=== PATIENT | female | born 1935 ===

== ENCOUNTER 2017-12-01 06:49 | Inpatient (IN) | payer MEDICARE ==
[2017-12-01 08:03] LABS: BASO # 0.1 K/uL (0.0-0.2); BASO % 0.7 % (0.0-2.0); EOS # 0.2 K/uL (0.0-0.7); EOS % 2.7 % (0.0-4.0); HEMOGLOBIN 12.6 g/dL (11.0-16.0); LYMPH # 1.8 K/uL (1.0-4.3); LYMPH % 26.1 % (20.0-40.0); MEAN CELL VOLUME 94.1 fL (81.0-99.0); MEAN CORPUSCULAR HEMOGLOBIN 31.7 pg (27.0-31.0); MEAN CORPUSCULAR HGB CONC 33.7 g/dL (33.0-37.0); MEAN PLATELET VOLUME 7.3 fL (7.2-11.7); MONO # 0.6 K/uL (0.0-0.8); MONO % 8.8 % (0.0-10.0); NEUT # 4.3 K/uL (1.8-7.0); NEUT % 61.7 % (50.0-75.0); RBC 3.98 Mil/uL (3.80-5.20); RED CELL DISTRIBUTION WIDTH 14.4 % (11.5-14.5)
[2017-12-01 08:29] LABS: CALCIUM 8.6 mg/dl (8.6-10.4); GFR AFRICAN-AMERICAN > 60; GFR NON-AFRICAN AMERICAN > 60
[2017-12-01 08:30] LABS: ALBUMIN 4.1 g/dL (3.5-5.0); ALT/SGPT < 6 U/L (9-52); AST/SGOT 65 U/L (14-36); BLOOD UREA NITROGEN 15 mg/dL (7-17)
--- NOTE | 2017-12-01 09:07 | C.PDOC ---
History Of Present Illness 81 y/o female sent to ED for worsened cellulitis. Patient states she is here for non healing left leg wound on left leg. Patient was being treated outpatient and recently traveled from the [facility] and then the wound became worsened. Patient currently denies pain, fever, vomiting, or diarrhea. Patient has steady gait. Time Seen by Provider: 12/01/17 07:19 Chief Complaint (Nursing): Lower Extremity Problem/Injury History Per: Patient, Family (Daughter) History/Exam Limitations: language barrier Onset/Duration Of Symptoms: Hrs Current Symptoms Are (Timing): Still Present Recent travel outside of the [place]: Yes Past Medical History Reviewed: Historical Data, Nursing Documentation, Vital Signs Vital Signs: Last Vital Signs Temp 98.4 F 12/01/17 16:00 Pulse 93 H 12/01/17 16:00 Resp 20 12/01/17 16:00 BP 117/68 12/01/17 16:00 Pulse Ox 97 12/01/17 16:00 - Medical History PMH: No Chronic Diseases Surgical History: No Surg Hx Family History: States: No Known Family Hx - Social History Hx Alcohol Use: No Hx Substance Use: No - Immunization History Hx Tetanus Toxoid Vaccination: No Hx Influenza Vaccination: No Hx Pneumococcal Vaccination: No Review Of Systems Except As Marked, All Systems Reviewed And Found Negative. Constitutional: Negative for: Fever, Chills Gastrointestinal: Negative for: Nausea, Vomiting, Abdominal Pain, Diarrhea Skin: Positive for: Other (Left leg wound ). Negative for: Rash Neurological: Negative for: Weakness, Numbness Physical Exam - Physical Exam Appears: Non-toxic, No Acute Distress Skin: Warm, Dry, No Rash, Other (2.5cm wound left distal calf) Eye(s): bilateral: Normal Inspection, PERRL, EOMI Oral Mucosa: Moist Neck: Supple Chest: Symmetrical, No Tenderness Cardiovascular: Rhythm Regular, No Murmur Respiratory: Normal Breath Sounds, No Decreased Breath Sounds, No Rales, No Rhonchi, No Wheezing Gastrointestinal/Abdominal: Soft, No Tenderness Extremity: Normal ROM (Full ROM to leg ), No Pedal Edema, Capillary Refill ( Normal ), Other (2.5cm wound left distal calf; erythematous; tender; Swelling) Extremity: Bilateral: Normal Color And Temperature, Normal ROM Pulses: Left Dorsalis Pedis: Normal, Right Dorsalis Pedis: Normal Neurological/Psych: Oriented x3 (Awake and alert), Normal Speech, Other (No focal deficits) Gait: Steady ED Course And Treatment - Laboratory Results Result Diagrams: 12/01/17 07:59 12/01/17 07:59 O2 Sat by Pulse Oximetry: 97 (RA) Pulse Ox Interpretation: Normal - Other Rad CXR X-Ray: Viewed By Me, Read By Radiologist Interpretation: PROCEDURE: CHEST RADIOGRAPH, 1 VIEW. HISTORY: Abdominal pain. COMPARISON: None available. FINDINGS: LUNGS: The lungs are well inflated. There is mild pulmonary venous congestion. No focal consolidation. PLEURA: No pneumothorax or pleural fluid seen. CARDIOVASCULAR: There is mild cardiomegaly with prominent central vasculature. OSSEOUS STRUCTURES: No significant abnormalities. VISUALIZED UPPER ABDOMEN: Normal. OTHER FINDINGS: None. IMPRESSION: No active pulmonary disease. Medical Decision Making Medical Decision Making: Ordered blood work, and blood and wound culture. The case was discussed with Dr. Walker (PMD) who states that the patient has failed outpatient therapy. The case was discussed with Dr. Efe Mooney ( infectious disease) who states to order a CRP and an ESR. Dr. Mooney also states to start the patient on Vanco and Rocephin. Disposition - Disposition Disposition: HOSPITALIZED Disposition Time: 09:00 Condition: FAIR - Clinical Impression Clinical Impression: Osteomyelitis - PA / PAINTER SET / Resident Statement MD/DO has reviewed & agrees with the documentation as recorded. - Scribe Statement The provider has reviewed the documentation as recorded by the Katyaibantoni Fuentes All medical record entries made by the Scribe were at my direction and personally dictated by me. I have reviewed the chart and agree that the record accurately reflects my personal performance of the history, physical exam, medical decision making, and the department course for this patient. I have also personally directed, reviewed, and agree with the discharge instructions and disposition.
--- NOTE | 2017-12-01 10:03 | RAD ---
PROCEDURE: CHEST RADIOGRAPH, 1 VIEW HISTORY: Abdominal pain COMPARISON: None available. FINDINGS: LUNGS: The lungs are well inflated. There is mild pulmonary venous congestion. No focal consolidation. PLEURA: No pneumothorax or pleural fluid seen. CARDIOVASCULAR: There is mild cardiomegaly with prominent central vasculature. OSSEOUS STRUCTURES: No significant abnormalities. VISUALIZED UPPER ABDOMEN: Normal. OTHER FINDINGS: None. IMPRESSION: No active pulmonary disease.
[2017-12-01] MEDS ORDERED: cefTRIAXone IV 1 gm in Dextros 50 ML IV ONE (10:25)
[2017-12-01] MEDS ORDERED: Vancomycin 1 GM 1 GM/250 ML BAG IV SCH (10:30)
[2017-12-01] MEDS ORDERED: Vancomycin 1 gm/NS 200 ml 1 GM/200 ML BAG IVPB ONE (12:00)
--- NOTE | 2017-12-01 12:36 | CP.PCM.CON ---
Past Patient History - Past Social History Smoking Status: Never Smoked - PSYCHIATRIC Hx Substance Use: No - SURGICAL HISTORY Hx Surgeries: No - ANESTHESIA Hx Anesthesia: No Meds Allergies/Adverse Reactions: Allergies Allergy/AdvReac Type Severity Reaction Status Date / Time No Known Allergies Allergy Unverified 12/01/17 06:54 - Medications Medications: Current Medications Vancomycin/Sodium Chloride (Vancomycin 1 Gm/Ns 200 Ml) 1 gm in 200 mls @ 133.333 mls/hr IVPB ONCE ONE PRN Reason: Protocol Stop: 12/01/17 13:29 Last Admin: 12/01/17 12:18 Dose: 133.333 mls/hr Results - Vital Signs Recent Vital Signs: Last Vital Signs Temp 98.1 F 12/01/17 11:20 Pulse 86 12/01/17 11:20 Resp 20 12/01/17 11:20 BP 173/78 H 12/01/17 11:20 Pulse Ox 95 12/01/17 11:20 - Labs Result Diagrams: 12/01/17 07:59 12/01/17 07:59 Labs: Laboratory Results - last 24 hr 12/01/17 12/01/17 07:59 07:59 WBC 7.0 RBC 3.98 Hgb 12.6 Hct 37.4 MCV 94.1 MCH 31.7 H MCHC 33.7 RDW 14.4 Plt Count 254 MPV 7.3 Neut % (Auto) 61.7 Lymph % (Auto) 26.1 [place] % (Auto) 8.8 Eos % (Auto) 2.7 Baso % (Auto) 0.7 Neut # (Auto) 4.3 Lymph # (Auto) 1.8 [place] # (Auto) 0.6 Eos # (Auto) 0.2 Baso # (Auto) 0.1 Sodium 145 Potassium 4.2 Chloride 108 H Carbon Dioxide 26 Anion Gap 15 BUN 15 Creatinine 0.5 L Est GFR ( Amer) > 60 Est GFR (Non-Af Amer) > 60 Random Glucose 98 Calcium 8.6 Total Bilirubin 1.2 AST 65 H ALT < 6 L Alkaline Phosphatase 134 H Total Protein 8.0 Albumin 4.1 Globulin 3.9 Albumin/Globulin Ratio 1.0
--- NOTE | 2017-12-01 13:18 | CP.PCM.HP ---
History of Present Illness - History of Present Illness History of Present Illness: 81 y.o. female with no significant PMH, NOT ON MAINTENANCE MEDICATION WAS ADMITTED DUE TO ONE MONTH WOUND ON LEFT LEG PATIENT WAS IN THE [facility] FOR MORE THAN A YEAR, SHE REPORTS THAT ABOUT A MONTH AGO, SHE WAS GARDENING AND HAS THIS ITCHY RASH ON HER LEFT LEG- , WOUND WORSENED AND SHE FINALLY SAW A DOCTOR AND WAS GIVEN ANTIBIOTIC BUT PATIENT ADMITS DID NOT TAKE THE ANTIBIOTIC. SSHE CAME TO THE CLINIC AN DNOTED TO HAVE SWELLING, REDNESS BLACKISH WOUND ON LEFT LEG- PATIENT WAS THEN ADMITTED FOR FURTHER MANAGEMENT AND EVALUATION PMH NONE SURGERY NONE MEDICATIONS NONE SOCIAL WAS IN THE [facility] FOR MORE THAN A YEAR, LIVES WITH FAMILY NON SMOKER NON ETOH Present on Admission - Present on Admission Any Indicators Present on Admission: Yes History of DVT/PE: No History of Uncontrolled Diabetes: No Urinary Catheter: No Decubitus Ulcer Present: Yes (LEFT LEG ) Review of Systems - Constitutional Constitutional: absent: Anorexia, Chills, Fatigue, Fever, Lethargy, Weakness - EENT Eyes: absent: Blurred Vision, Loss of Vision Ears: Decreased Hearing. absent: Dizziness Nose/Mouth/Throat: absent: Epistaxis, Nasal Congestion, Nasal Discharge, Sinus Pain, Dysphagia - Breasts Breasts: absent: Mass, Pain - Cardiovascular Cardiovascular: Palpitations. absent: Chest Pain, Dyspnea, Orthopnea, Pedal Edema, Syncope - Respiratory Respiratory: Chest Congestion. absent: Cough, Dyspnea - Gastrointestinal Gastrointestinal: absent: Abdominal Pain, Bloating, Temesmus, Vomiting - Genitourinary Genitourinary: Difficulty Urinating, Dysuria, Hematuria - Menstruation Menstruation: Post Menopausal - Musculoskeletal Musculoskeletal: absent: Abnormal Gait, Atrophy, Deformity - Integumentary Integumentary: Lesions, Skin Ulcer (BACK LEFT LEG-OPEN WOUND COVERED WITH BLACK ESCHAR WITH SURROUNDING REDNESS AND SWELLING ) - Neurological Neurological: absent: Abnormal Gait, Abnormal Movements, Abnormal Speech, Behavioral Changes, Convulsions, Disequilibrium, Dizziness, Syncope - Psychiatric Psychiatric: absent: Anxiety, Confusion, Hallucinations, Memory Loss - Endocrine Endocrine: absent: Polydipsia, Polyphagia, Polyuria - Hematologic/Lymphatic Hematologic: absent: Easy Bleeding, Easy Bruising Past Patient History - Past Medical History & Family History Past Medical History?: No - Past Social History Smoking Status: Never Smoked - PSYCHIATRIC Hx Substance Use: No - SURGICAL HISTORY Hx Surgeries: No - ANESTHESIA Hx Anesthesia: No Meds Allergies/Adverse Reactions: Allergies Allergy/AdvReac Type Severity Reaction Status Date / Time No Known Allergies Allergy Unverified 12/01/17 06:54 Physical Exam - Constitutional Appears: No Acute Distress - Head Exam Head Exam: ATRAUMATIC, NORMOCEPHALIC - Eye Exam Eye Exam: Normal appearance. absent: Nystagmus - ENT Exam ENT Exam: Mucous Membranes Moist - Neck Exam Neck exam: Positive for: Full Rom. Negative for: Tenderness - Respiratory Exam Respiratory Exam: Clear to Auscultation Bilateral, NORMAL BREATHING PATTERN - Cardiovascular Exam Cardiovascular Exam: REGULAR RHYTHM - GI/Abdominal Exam GI & Abdominal Exam: Normal Bowel Sounds, Soft. absent: Tenderness - Extremities Exam Extremities exam: Positive for: full ROM (PATIENT IS AMBULATORY WITH OPEN WOUND ON BACK OF LEFT LEG COVERED WITH BLACK MATERIAL, WITH SURROUNDING REDNESS AND SWELLING , PULSES NOT FELT , FEET HAS WHITISH DEPIGMENTATION FROM PREVIOUS SKIN LESION ) - Back Exam Back exam: absent: rash noted, tenderness - Neurological Exam Neurological exam: Alert, Normal Gait, Oriented x3 - Psychiatric Exam Psychiatric exam: Normal Affect, Normal Mood - Skin Skin Exam: Intact (OR=THER THAN THE LEG LESION ), Normal Color Results - Vital Signs Recent Vital Signs: Last Vital Signs Temp 98.1 F 12/01/17 11:20 Pulse 86 12/01/17 11:20 Resp 20 12/01/17 11:20 BP 173/78 H 12/01/17 11:20 Pulse Ox 95 12/01/17 11:20 - Labs Result Diagrams: 12/01/17 07:59 12/01/17 07:59 Labs: Laboratory Results - last 24 hr 12/01/17 12/01/17 07:59 07:59 WBC 7.0 RBC 3.98 Hgb 12.6 Hct 37.4 MCV 94.1 MCH 31.7 H MCHC 33.7 RDW 14.4 Plt Count 254 MPV 7.3 Neut % (Auto) 61.7 Lymph % (Auto) 26.1 [place] % (Auto) 8.8 Eos % (Auto) 2.7 Baso % (Auto) 0.7 Neut # (Auto) 4.3 Lymph # (Auto) 1.8 [place] # (Auto) 0.6 Eos # (Auto) 0.2 Baso # (Auto) 0.1 Sodium 145 Potassium 4.2 Chloride 108 H Carbon Dioxide 26 Anion Gap 15 BUN 15 Creatinine 0.5 L Est GFR ( Amer) > 60 Est GFR (Non-Af Amer) > 60 Random Glucose 98 Calcium 8.6 Total Bilirubin 1.2 AST 65 H ALT < 6 L Alkaline Phosphatase 134 H Total Protein 8.0 Albumin 4.1 Globulin 3.9 Albumin/Globulin Ratio 1.0 Assessment & Plan - Assessment and Plan (Free Text) Assessment: 81 Y. O. FEMALE WITH NO SIGNIFICANT PMH- ADMITTED FOR POSSIBLE OSTEOMYELITIS WITH SURROUNDING CELLULITIS CULTURE, BONE SCAN ID CONSULT, SURGICAL CONSULT FOR POSSIBLE DEBRIDEMENT ANTIBIOTIC, FALL PRECAUTION GI AND DVT PROPHY;AXIS DISCUSSION WITH PATIENT AND DAUGHTER - Date & Time Date: 12/01/17
[2017-12-01 16:58] LABS: HDL CHOLESTEROL 29 mg/dL (30-70)
[2017-12-01 17:08] LABS: LDL CHOLESTEROL 69 mg/dL (0-129)
[2017-12-01] MEDS: Sodium Chloride 0.9% 1,000 ML IV SCH (17:45)
--- NOTE | 2017-12-01 17:54 | CP.PCM.CON ---
History of Present Illness - History of Present Illness History of Present Illness: Vascular Surgery Consult for Dr. Gamboa This is an 81F with no PMH who was gardening in the [facility] 1 month ago when she was bit by something. Her leg was itching and over the month the lesion turned black and necrotic. She denies any fevers or chills at home. She denies any CP or SOB. PMH: Denies PSH: None ALL: Fish Social: No vices Review of Systems - Constitutional Constitutional: absent: Anorexia, Chills - EENT Eyes: absent: Blind Spots, Change in Vision Ears: absent: Decreased Hearing, Ear Pain - Cardiovascular Cardiovascular: absent: Chest Pain, Dyspnea - Respiratory Respiratory: absent: Cough, Dyspnea - Gastrointestinal Gastrointestinal: absent: Abdominal Pain, Bloating, Diarrhea, Nausea - Genitourinary Genitourinary: absent: Change in Urinary Stream, Dysuria Past Patient History - Past Medical History & Family History Past Medical History?: No - Past Social History Smoking Status: Never Smoked - PSYCHIATRIC Hx Substance Use: No - SURGICAL HISTORY Hx Surgeries: No - ANESTHESIA Hx Anesthesia: No Meds Allergies/Adverse Reactions: Allergies Allergy/AdvReac Type Severity Reaction Status Date / Time No Known Allergies Allergy Unverified 12/01/17 06:54 - Medications Medications: Current Medications Enoxaparin Sodium (Lovenox) 30 mg SC DAILY [facility] Sodium Chloride (Sodium Chloride 0.9%) 1,000 mls @ 100 mls/hr IV .Q10H [facility] Pantoprazole Sodium (Protonix Ec Tab) 40 mg PO DAILY [facility] Physical Exam - Constitutional Appears: Non-toxic, No Acute Distress - Head Exam Head Exam: NORMAL INSPECTION, NORMOCEPHALIC - Eye Exam Eye Exam: EOMI, Normal appearance - ENT Exam ENT Exam: Mucous Membranes Moist - Respiratory Exam Respiratory Exam: NORMAL BREATHING PATTERN - Cardiovascular Exam Cardiovascular Exam: +S1, +S2 - GI/Abdominal Exam GI & Abdominal Exam: Normal Bowel Sounds, Soft. absent: Distended, Firm, Guarding, Hernia - Neurological Exam Neurological exam: Alert, Oriented x3 - Psychiatric Exam Psychiatric exam: Normal Affect, Normal Mood - Skin Skin Exam: Dry, Intact Results - Vital Signs Recent Vital Signs: Last Vital Signs Temp 98.4 F 12/01/17 16:00 Pulse 93 H 12/01/17 16:00 Resp 20 12/01/17 16:00 BP 117/68 12/01/17 16:00 Pulse Ox 97 12/01/17 16:00 - Labs Result Diagrams: 12/01/17 07:59 12/01/17 07:59 Labs: Laboratory Results - last 24 hr 12/01/17 12/01/17 12/01/17 07:59 07:59 13:46 WBC 7.0 RBC 3.98 Hgb 12.6 Hct 37.4 MCV 94.1 MCH 31.7 H MCHC 33.7 RDW 14.4 Plt Count 254 MPV 7.3 Neut % (Auto) 61.7 Lymph % (Auto) 26.1 [place] % (Auto) 8.8 Eos % (Auto) 2.7 Baso % (Auto) 0.7 Neut # (Auto) 4.3 Lymph # (Auto) 1.8 [place] # (Auto) 0.6 Eos # (Auto) 0.2 Baso # (Auto) 0.1 ESR 20 Sodium 145 Potassium 4.2 Chloride 108 H Carbon Dioxide 26 Anion Gap 15 BUN 15 Creatinine 0.5 L Est GFR ( Amer) > 60 Est GFR (Non-Af Amer) > 60 Random Glucose 98 Hemoglobin A1c Calcium 8.6 Total Bilirubin 1.2 AST 65 H ALT < 6 L Alkaline Phosphatase 134 H C-Reactive Protein Total Protein 8.0 Albumin 4.1 Globulin 3.9 Albumin/Globulin Ratio 1.0 Triglycerides Cholesterol LDL Cholesterol Direct HDL Cholesterol 12/01/17 12/01/17 13:46 13:50 WBC RBC Hgb Hct MCV MCH MCHC RDW Plt Count MPV Neut % (Auto) Lymph % (Auto) [place] % (Auto) Eos % (Auto) Baso % (Auto) Neut # (Auto) Lymph # (Auto) [place] # (Auto) Eos # (Auto) Baso # (Auto) ESR Sodium Potassium Chloride Carbon Dioxide Anion Gap BUN Creatinine Est GFR ( Amer) Est GFR (Non-Af Amer) Random Glucose Hemoglobin A1c 5.6 Calcium Total Bilirubin AST ALT Alkaline Phosphatase C-Reactive Protein < 5.00 Total Protein Albumin Globulin Albumin/Globulin Ratio Triglycerides 85 Cholesterol 130 LDL Cholesterol Direct 69 HDL Cholesterol 29 L Assessment & Plan - Assessment and Plan (Free Text) Assessment: 81F with LLE necrotic lesion NPO after midnight IVF OR tomorrow AM AM Labs D/W Dr. Cooper Finn PGY2
--- NOTE | 2017-12-01 19:48 | CP.PCM.CON ---
History of Present Illness - History of Present Illness History of Present Illness: INFECTIOUS DISEASE CONSULT History of Present Illness: 81-year-old pleasant female with no significant past medical history was admitted to [facility] for cellulitis and necrotic,NONHEALING wound left lower leg for the past 4 weeks. As stated by the patient she was in [facility] for about a year and just returned to [facility] last week. She developed an itchy rash while she was working in the garden and she scratched and developed an ulcer. She also developed surrounding erythema around the ulcer site and went to see a Docter in [facility] who prescribed her some antibiotic. Patient states she did not take the antibiotic and now when she returned to [facility] she went to the clinic and was advised to go to the emergency room for further evaluation. Patient also states she has multiple allergies to seafood especially shrimp, fish, crabs. INFECTIOUS DISEASE CONSULT REQUESTED BY DR GAUTHIER FOR NONHEALING ULCER LEFT LOWER LEG/RULE OUT OSTEOMYELITIS. PMH; DENIES HISTORY OF DIABETES MELLITUS, HYPERTENSION, ATHEROSCLEROTIC HEART DISEASE, ASTHMA, HAYFEVER SURGERY NONE MEDICATIONS ;NONE SOCIAL WAS IN THE [facility] FOR MORE THAN A YEAR, LIVES WITH FAMILY NON SMOKER NON ETOH ALLERGY; SEAFOOD, FISH, SHRIMP, CRAB. IMMUNIZATIONS; Hx Tetanus Toxoid Vaccination: No Hx Influenza Vaccination: No Hx Pneumococcal Vaccination: No Review of Systems - Constitutional Constitutional: absent: Chills, Fever - EENT Eyes: absent: Change in Vision Ears: absent: Dizziness Nose/Mouth/Throat: absent: Mouth Lesions - Cardiovascular Cardiovascular: absent: Chest Pain, Dyspnea - Respiratory Respiratory: absent: Cough - Gastrointestinal Gastrointestinal: absent: Abdominal Pain, Diarrhea, Nausea, Vomiting - Genitourinary Genitourinary: absent: Dysuria, Hematuria - Integumentary Integumentary: Non-Healing Lesions (left lower extremity) - Hematologic/Lymphatic Hematologic: As Per HPI. absent: Easy Bleeding, Easy Bruising, Lymphadenopathy Past Patient History - Past Medical History & Family History Past Medical History?: No - Past Social History Smoking Status: Never Smoked - PSYCHIATRIC Hx Substance Use: No - SURGICAL HISTORY Hx Surgeries: No - ANESTHESIA Hx Anesthesia: No Meds Allergies/Adverse Reactions: Allergies Allergy/AdvReac Type Severity Reaction Status Date / Time No Known Allergies Allergy Unverified 12/01/17 06:54 - Medications Medications: Current Medications Enoxaparin Sodium (Lovenox) 30 mg SC DAILY [facility] Sodium Chloride (Sodium Chloride 0.9%) 1,000 mls @ 100 mls/hr IV .Q10H [facility] Pantoprazole Sodium (Protonix Ec Tab) 40 mg PO DAILY [facility] Physical Exam - Constitutional Appears: No Acute Distress - Head Exam Head Exam: NORMAL INSPECTION - Eye Exam Eye Exam: EOMI, PERRL - ENT Exam ENT Exam: Normal Oropharynx - Neck Exam Neck exam: Positive for: Normal Inspection - Respiratory Exam Respiratory Exam: Clear to Auscultation Bilateral - Cardiovascular Exam Cardiovascular Exam: REGULAR RHYTHM, +S1, +S2 - GI/Abdominal Exam GI & Abdominal Exam: Normal Bowel Sounds, Soft. absent: Organomegaly - Extremities Exam Extremities exam: Positive for: pedal edema, tenderness (left lower extremity with a necrotic ulcer with surrounding erythema.), pedal pulses present. Negative for: calf tenderness - Psychiatric Exam Psychiatric exam: Normal Mood - Skin Skin Exam: Normal Color, Warm Results - Vital Signs Recent Vital Signs: Last Vital Signs Temp 98.4 F 12/01/17 16:00 Pulse 93 H 12/01/17 16:00 Resp 20 12/01/17 16:00 BP 117/68 12/01/17 16:00 Pulse Ox 97 12/01/17 19:00 - Labs Result Diagrams: 12/01/17 07:59 12/01/17 07:59 Labs: Laboratory Results - last 24 hr 12/01/17 12/01/17 12/01/17 07:59 07:59 13:46 WBC 7.0 RBC 3.98 Hgb 12.6 Hct 37.4 MCV 94.1 MCH 31.7 H MCHC 33.7 RDW 14.4 Plt Count 254 MPV 7.3 Neut % (Auto) 61.7 Lymph % (Auto) 26.1 [place] % (Auto) 8.8 Eos % (Auto) 2.7 Baso % (Auto) 0.7 Neut # (Auto) 4.3 Lymph # (Auto) 1.8 [place] # (Auto) 0.6 Eos # (Auto) 0.2 Baso # (Auto) 0.1 ESR 20 Sodium 145 Potassium 4.2 Chloride 108 H Carbon Dioxide 26 Anion Gap 15 BUN 15 Creatinine 0.5 L Est GFR ( Amer) > 60 Est GFR (Non-Af Amer) > 60 Random Glucose 98 Hemoglobin A1c Calcium 8.6 Total Bilirubin 1.2 AST 65 H ALT < 6 L Alkaline Phosphatase 134 H C-Reactive Protein Total Protein 8.0 Albumin 4.1 Globulin 3.9 Albumin/Globulin Ratio 1.0 Triglycerides Cholesterol LDL Cholesterol Direct HDL Cholesterol 12/01/17 12/01/17 13:46 13:50 WBC RBC Hgb Hct MCV MCH MCHC RDW Plt Count MPV Neut % (Auto) Lymph % (Auto) [place] % (Auto) Eos % (Auto) Baso % (Auto) Neut # (Auto) Lymph # (Auto) [place] # (Auto) Eos # (Auto) Baso # (Auto) ESR Sodium Potassium Chloride Carbon Dioxide Anion Gap BUN Creatinine Est GFR ( Amer) Est GFR (Non-Af Amer) Random Glucose Hemoglobin A1c 5.6 Calcium Total Bilirubin AST ALT Alkaline Phosphatase C-Reactive Protein < 5.00 Total Protein Albumin Globulin Albumin/Globulin Ratio Triglycerides 85 Cholesterol 130 LDL Cholesterol Direct 69 HDL Cholesterol 29 L - Imaging and Cardiology Chest x-ray Status: Report reviewed by me (see report.) Assessment & Plan (1) Nonhealing ulcer of left lower leg Assessment and Plan: ETIOLOGY OF NECROTIC ULCER NOT CLEAR ? INSECT BITE VS INFECTIOUS ?MRSA / STREP, PSEUDOMONAS ,FUNGAL , NON TUBERCULOUS MYCOBACTERIUM (AFB ) PT FOR DEBRIDEMENT/AND BX IN AM - SURGERY ON BOARD SEND WOUND CULTURE IN OR FOR *GRAM STAIN AND CULTURE, * FUNGAL SMEAR AND CULTURE * AFB SMEAR AND CULTURE * HISTOLOGY/ START IV ROCEPHIN 1 G ONCE A DAY DAILY. 12/01/17 START iv VANCOMYCIN 1 G ONCE A DAY DAILY 12/01/17 MONITOR vANCO TROUGH LEVEL PRIOR TO THE THIRD DOSE AND KEEP BETWEEN 10 AND 20 F/U RENAL FUNCTIONS CLOSELY. LWC PER SURGERY. 3PHASE BONE SCAN R/O OSTEOMYLITIS LLE Status: Acute (2) Cellulitis of lower extremity Assessment and Plan: PATIENT STARTED ON iv ANTIBIOTICS. Status: Acute
[2017-12-02] MEDS: Sodium Chloride 0.9% 1,000 ML IV SCH ×2 (03:45→06:08)
--- NOTE | 2017-12-02 07:24 | CP.PCM.PN ---
Subjective - Date & Time of Evaluation Date of Evaluation: 12/02/17 Time of Evaluation: 10:00 - Subjective Subjective: Patient with necrotic wound,non healing -consulted surgery for debridement, Notes from surgery noted Patient seen she was NPO for OR today for debridement she wants to ggo home for an event on Wednesday in [place] Discusssion with social work therapist- regarding home IV Objective - Vital Signs/Intake and Output Vital Signs (last 24 hours): Temp Pulse Resp BP Pulse Ox 98.1 F 86 20 112/69 96 12/01/17 23:24 12/01/17 23:24 12/01/17 23:24 12/01/17 23:24 12/01/17 23:24 Intake and Output: 12/02/17 12/02/17 06:59 18:59 Intake Total 1500 Balance 1500 - Medications Medications: Current Medications Enoxaparin Sodium (Lovenox) 30 mg SC DAILY [facility] Sodium Chloride (Sodium Chloride 0.9%) 1,000 mls @ 100 mls/hr IV .Q10H [facility] Last Admin: 12/02/17 06:08 Dose: 100 mls/hr Ceftriaxone Sodium 1 gm/ (Sodium Chloride) 100 mls @ 100 mls/hr IVPB DAILY [facility]INNA PRN Reason: Protocol Vancomycin/Sodium Chloride (Vancomycin 1 Gm/Ns 200 Ml) 1 gm in 200 mls @ 133.333 mls/hr IVPB Q24H CORINNA PRN Reason: Protocol Pantoprazole Sodium (Protonix Ec Tab) 40 mg PO DAILY [facility] Pneumococcal Polyvalent Vaccine (Pneumovax 23 Vaccine) 0.5 ml IM .ONCE ONE Stop: 12/03/17 10:01 - Labs Labs: 12/01/17 07:59 12/01/17 07:59 - Constitutional Appears: Well, Non-toxic - Head Exam Head Exam: ATRAUMATIC, NORMOCEPHALIC - Eye Exam Eye Exam: Normal appearance. absent: Nystagmus - ENT Exam ENT Exam: Mucous Membranes Moist - Respiratory Exam Respiratory Exam: Clear to Ausculation Bilateral, NORMAL BREATHING PATTERN - Cardiovascular Exam Cardiovascular Exam: REGULAR RHYTHM - GI/Abdominal Exam GI & Abdominal Exam: Soft, Normal Bowel Sounds - Extremities Exam Extremities Exam: Full ROM (left leg swelling and redness had gone down ). absent: Tenderness - Back Exam Back Exam: Full ROM. absent: rash noted - Neurological Exam Neurological Exam: Alert, Awake, Normal Gait (but she does not get out of bed byself- fall precaution), Oriented x3 - Psychiatric Exam Psychiatric exam: Normal Affect, Normal Mood - Skin Skin Exam: Intact (other than the leg lesion), Normal Color Assessment and Plan - Assessment and Plan (Free Text) Assessment: Patient with no other PMH- admitted for one month wound with cellulitis of left leg . on antibiotic, bone scan negative for OM, ID on case , awaiting cultures patent is scheduled for debridement today stable, afebrile patient aware of condition and plan discussion with ID and staff patient wishes to go home tomorrow for a family event on Wednesday
[2017-12-02 08:41] LABS: HEMOGLOBIN 12.6 g/dL (11.0-16.0); MEAN CELL VOLUME 94.2 fL (81.0-99.0); MEAN CORPUSCULAR HEMOGLOBIN 31.3 pg (27.0-31.0); MEAN CORPUSCULAR HGB CONC 33.2 g/dL (33.0-37.0); MEAN PLATELET VOLUME 7.4 fL (7.2-11.7); RBC 4.05 Mil/uL (3.80-5.20); RED CELL DISTRIBUTION WIDTH 14.3 % (11.5-14.5); WHITE BLOOD COUNT 5.7 K/uL (4.8-10.8)
[2017-12-02 08:45] LABS: INR 1.2; PROTHROMBIN TIME 12.7 SECONDS (9.7-12.2)
[2017-12-02 09:11] LABS: ALBUMIN 3.5 g/dL (3.5-5.0); ALT/SGPT 21 U/L (9-52); AST/SGOT 25 U/L (14-36); BLOOD UREA NITROGEN 10 mg/dL (7-17); CALCIUM 8.8 mg/dl (8.6-10.4); GFR AFRICAN-AMERICAN > 60; GFR NON-AFRICAN AMERICAN > 60
[2017-12-02] MEDS: Pantoprazole 40 mg EC Tab PO SCH (10:11)
[2017-12-02] MEDS: Enoxaparin 30 mg Syringe SC SCH (10:12)
--- NOTE | 2017-12-02 12:00 | NM ---
PROCEDURE: Three-phase bone scan HISTORY: r/o osteomylitis Anatomic area of interest: Not provided COMPARISON: None available. TECHNIQUE: Following administration of 21.3 miCu of Tc MDP multiplanar whole body images were obtained. FINDINGS: Flow component: Increased flow to the left lower extremity from the visualized calf to the foot. Blood pool component: Increased accumulation of radionuclide primarily within soft tissues the visualized left lower extremity. Delayed images at 3:00: Presumed degenerative/posttraumatic changes both feet Other findings: None. IMPRESSION: Findings consistent with left lower extremity cellulitis without acute osseous abnormality
[2017-12-02] MEDS: Vancomycin 1 gm/NS 200 ml 1 GM/200 ML BAG IVPB SCH (12:51)
--- NOTE | 2017-12-02 14:23 | CP.PCM.PN ---
Subjective - Date & Time of Evaluation Date of Evaluation: 12/02/17 Time of Evaluation: 14:22 - Subjective Subjective: DISCUSSED BONE SCAN RESULTS WITH DRS. GAUTHIER AND ANGELITO. NO NEED FOR PICC LINE SINCE BONE SCAN NEG FOR OM. PER DR. EATON NO NEED FOR CORRECTION IV ABX. DR. EATON WILL DOCUMENT HER RECOMMENDATIONS FOR PO ABX TO BE STARTED UPON D/C. PER DR. GAUTHIER PT WISHES TO BE D/C TOMORROW. WILL ENDORSE TO [employer] PRODUCER ALISA TO F/U FOR D/ C PLANS/RX. DISCUSSED WITH PRIMARY RN GINGER. NO FURTHER ORDERS. Objective - Vital Signs/Intake and Output Vital Signs (last 24 hours): Temp Pulse Resp BP Pulse Ox 98.5 F 76 20 131/72 96 12/02/17 07:59 12/02/17 07:59 12/02/17 07:59 12/02/17 07:59 12/02/17 07:59 Intake and Output: 12/02/17 12/02/17 06:59 18:59 Intake Total 1500 Balance 1500 - Medications Medications: Current Medications Enoxaparin Sodium (Lovenox) 30 mg SC DAILY [facility] Last Admin: 12/02/17 10:12 Dose: Not Given Ceftriaxone Sodium 1 gm/ (Sodium Chloride) 100 mls @ 100 mls/hr IVPB DAILY [facility] PRN Reason: Protocol Last Admin: 12/02/17 10:11 Dose: 100 mls/hr Vancomycin/Sodium Chloride (Vancomycin 1 Gm/Ns 200 Ml) 1 gm in 200 mls @ 133.333 mls/hr IVPB Q24H [facility] PRN Reason: Protocol Last Admin: 12/02/17 12:51 Dose: 133.333 mls/hr Potassium Chloride 20 meq/ (Sodium Chloride) 1,010 mls @ 100 mls/hr IV .Q10H6M [facility] Pantoprazole Sodium (Protonix Ec Tab) 40 mg PO DAILY [facility] Last Admin: 12/02/17 10:11 Dose: 40 mg Pneumococcal Polyvalent Vaccine (Pneumovax 23 Vaccine) 0.5 ml IM .ONCE ONE Stop: 12/03/17 10:01 - Labs Labs: 12/02/17 08:29 12/02/17 08:29 PT 12.7 SECONDS (9.7-12.2) H 12/02/17 08:29 INR 1.2 12/02/17 08:29 APTT 38 SECONDS (21-34) H 12/02/17 08:29
[2017-12-02] MEDS ORDERED: Propofol 10 mg/ml Inj (20 ML) ONE (14:34)
[2017-12-02] MEDS ORDERED: Lidocaine Hydrochloride 15 ML INJ ONE (14:36)
[2017-12-02] MEDS ORDERED: Lactated Ringer's 1,000 ML IV ONE (15:03)
--- NOTE | 2017-12-02 15:06 | PCM.SURG1 ---
Surgeon's Initial Post Op Note - Surgeon's Notes Surgeon: paula Bilingual Social Worker: 0 Type of Anesthesia: IV Sedation, Local Anesthesia Administered By: catherine Pre-Operative Diagnosis: left calf ulcer Operative Findings: pus cultured. debrided skin and sq tissue Post-Operative Diagnosis: same Operation Performed: debridement of skin and sq tissue left calf Specimen/Specimens Removed: tissue/culture Estimated Blood Loss: EBL {In ML}: 10 Blood Products Given: N/A Drains Used: No Drains Post-Op Condition: Good Date of Surgery/Procedure: 12/02/17 Time of Surgery/Procedure: 15:06
[2017-12-02] MEDS ORDERED: Oxycodone/Acetaminophen 5/325 mg Tab PO PRN (15:07)
[2017-12-02 16:31] VITALS: RESP 20
--- NOTE | 2017-12-02 19:39 | CP.PCM.PN ---
Subjective - Date & Time of Evaluation Date of Evaluation: 12/02/17 Time of Evaluation: 19:39 - Subjective Subjective: S/P DEBRIDEMENT LT. CALF ULCER. Type of Anesthesia: IV Sedation, Local Anesthesia Administered By: catherine Pre-Operative Diagnosis: left calf ulcer Operative Findings: pus cultured. debrided skin and sq tissue PT SEEN POST -OPT. VSS. Objective - Vital Signs/Intake and Output Vital Signs (last 24 hours): Temp Pulse Resp BP Pulse Ox 97.3 F L 74 20 163/89 H 95 12/02/17 16:30 12/02/17 16:30 12/02/17 16:30 12/02/17 16:30 12/02/17 16:30 Intake and Output: 12/02/17 12/03/17 18:59 06:59 Intake Total 1105 Balance 1105 - Medications Medications: Current Medications Enoxaparin Sodium (Lovenox) 30 mg SC DAILY [facility] Last Admin: 12/02/17 10:12 Dose: Not Given Ceftriaxone Sodium 1 gm/ (Sodium Chloride) 100 mls @ 100 mls/hr IVPB DAILY [facility] PRN Reason: Protocol Last Admin: 12/02/17 10:11 Dose: 100 mls/hr Vancomycin/Sodium Chloride (Vancomycin 1 Gm/Ns 200 Ml) 1 gm in 200 mls @ 133.333 mls/hr IVPB Q24H [facility] PRN Reason: Protocol Last Admin: 12/02/17 12:51 Dose: 133.333 mls/hr Potassium Chloride 20 meq/ (Sodium Chloride) 1,010 mls @ 100 mls/hr IV .Q10H6M [facility] Last Admin: 12/02/17 11:00 Dose: 100 mls/hr Oxycodone/Acetaminophen (Percocet 5/325 Mg Tab) 1 tab PO Q4H PRN PRN Reason: Pain, moderate (4-7) Stop: 12/05/17 15:08 Pantoprazole Sodium (Protonix Ec Tab) 40 mg PO DAILY [facility] Last Admin: 12/02/17 10:11 Dose: 40 mg Pneumococcal Polyvalent Vaccine (Pneumovax 23 Vaccine) 0.5 ml IM .ONCE ONE Stop: 12/03/17 10:01 - Labs Labs: 12/02/17 08:29 12/02/17 08:29 PT 12.7 SECONDS (9.7-12.2) H 12/02/17 08:29 INR 1.2 12/02/17 08:29 APTT 38 SECONDS (21-34) H 12/02/17 08:29 - Constitutional Appears: No Acute Distress, Cachectic - Head Exam Head Exam: NORMAL INSPECTION - Eye Exam Eye Exam: EOMI, PERRL - ENT Exam ENT Exam: Normal Oropharynx - Neck Exam Neck Exam: Normal Inspection - Respiratory Exam Respiratory Exam: Clear to Ausculation Bilateral - Cardiovascular Exam Cardiovascular Exam: REGULAR RHYTHM, +S1, +S2 - GI/Abdominal Exam GI & Abdominal Exam: Soft, Normal Bowel Sounds - Extremities Exam Extremities Exam: absent: Calf Tenderness (LT CALF IN DRESSING.) - Neurological Exam Neurological Exam: Awake, CN II-XII Intact, Oriented x3 - Psychiatric Exam Psychiatric exam: Normal Mood - Skin Skin Exam: Normal Color, Warm Assessment and Plan (1) Nonhealing ulcer of left lower leg Assessment & Plan: S/P DEBRIDEMENT OF LEFT CALF ULCER . WOUND CULTURE PENDING. THREE-PHASE BONE SCAN LLE +VE CELLULITIS, NO OSTEOMYELITIS. CASE DISCUSSED WITH DR GAUTHIER . / FIELD SERVICE SPECIALIST. MS BURRIS AWAIT CULTURES TO ADJUST ANTIBIOTICS- PATIENT WILL BE SWITCHED TO BY MOUTH ANTIBIOTICS ONCE CULTURE RESULTS AVAILABLE. FAMILY ANXIOUS TO TAKE HER HOME FOR GRANDDAUGHTER'S GRADUATION. Status: Acute (2) Cellulitis of lower extremity Status: Acute
--- NOTE | 2017-12-03 01:49 | OP ---
PROCEDURE DATE: 12/02/2017 PREOPERATIVE DIAGNOSIS: Ulcer, left calf. POSTOPERATIVE DIAGNOSIS: Ulcer, left calf. PROCEDURE CARRIED OUT: Debridement of skin and subcutaneous tissue, left calf. SURGEON: Edward Gamboa Jr., MD ASSISTANTS: None. ANESTHESIOLOGIST: Mr. Cameron. TYPE OF ANESTHESIA: Local with sedation. INDICATIONS: An 81-year-old woman, had injury to the leg, developed a large scab. OPERATIVE FINDINGS: The wound with scab, which measured over 3 cm in every dimension, was removed ____ sheba pus, which was debrided, irrigated and cultured. The wound was packed open. The procedure was terminated. Blood loss of the procedure was 10 mL. Operation carried out is debridement of skin and subcutaneous, left calf. Edward Gamboa Jr., MD cc: Liv Vásquez MD
[2017-12-03 07:49] VITALS: BP 145/85
--- NOTE | 2017-12-03 07:55 | CP.PCM.PN ---
Subjective - Date & Time of Evaluation Date of Evaluation: 12/03/17 Time of Evaluation: 06:55 - Subjective Subjective: SURGERY NOTE FOR DR. WOLF 81F seen and examined at bedside. Patient states she feels well, denies pain at site of debridement. Objective - Vital Signs/Intake and Output Vital Signs (last 24 hours): Temp Pulse Resp BP Pulse Ox 98.1 F 78 20 145/85 96 12/03/17 07:48 12/03/17 07:48 12/03/17 07:48 12/03/17 07:48 12/03/17 07:48 Intake and Output: 12/03/17 12/03/17 06:59 18:59 Intake Total 1000 Balance 1000 - Medications Medications: Current Medications Enoxaparin Sodium (Lovenox) 30 mg SC DAILY [facility] Last Admin: 12/02/17 10:12 Dose: Not Given Ceftriaxone Sodium 1 gm/ (Sodium Chloride) 100 mls @ 100 mls/hr IVPB DAILY [facility] PRN Reason: Protocol Last Admin: 12/02/17 10:11 Dose: 100 mls/hr Vancomycin/Sodium Chloride (Vancomycin 1 Gm/Ns 200 Ml) 1 gm in 200 mls @ 133.333 mls/hr IVPB Q24H [facility] PRN Reason: Protocol Last Admin: 12/02/17 12:51 Dose: 133.333 mls/hr Potassium Chloride 20 meq/ (Sodium Chloride) 1,010 mls @ 100 mls/hr IV .Q10H6M [facility] Last Admin: 12/03/17 07:47 Dose: Not Given Oxycodone/Acetaminophen (Percocet 5/325 Mg Tab) 1 tab PO Q4H PRN PRN Reason: Pain, moderate (4-7) Stop: 12/05/17 15:08 Pantoprazole Sodium (Protonix Ec Tab) 40 mg PO DAILY [facility] Last Admin: 12/02/17 10:11 Dose: 40 mg Pneumococcal Polyvalent Vaccine (Pneumovax 23 Vaccine) 0.5 ml IM .ONCE ONE Stop: 12/03/17 10:01 - Labs Labs: 12/02/17 08:29 12/02/17 08:29 PT 12.7 SECONDS (9.7-12.2) H 12/02/17 08:29 INR 1.2 12/02/17 08:29 APTT 38 SECONDS (21-34) H 12/02/17 08:29 - Constitutional Appears: Non-toxic, No Acute Distress - Respiratory Exam Respiratory Exam: Clear to Ausculation Bilateral, NORMAL BREATHING PATTERN - Cardiovascular Exam Cardiovascular Exam: REGULAR RHYTHM, +S1, +S2 - GI/Abdominal Exam GI & Abdominal Exam: Soft. absent: Distended, Firm, Guarding, Rigid, Tenderness , Rebound - Extremities Exam Extremities Exam: absent: Pedal Edema, Tenderness Additional comments: left lower extremity dressing at site of debridement clean dry intact - Neurological Exam Neurological Exam: Alert, Awake - Skin Skin Exam: Dry, Intact, Normal Color, Warm Assessment and Plan - Assessment and Plan (Free Text) Assessment: 81F s/p mechanical debridement of left lower extremity ulcer POD1 Plan: - Monitor dressing - Dressing changes - wound care - bone scan neg for bone involvement at site of cellulitis Further recs discuss with Dr. Thaddeus Orr, PGY2
--- NOTE | 2017-12-03 09:13 | CP.PCM.PN ---
Subjective - Date & Time of Evaluation Date of Evaluation: 12/03/17 Time of Evaluation: 14:27 - Subjective Subjective: Review of Bone sacn- no osteomyelitis- as noted [place] of blood culture- positive for MRSA Discussion with ID and Surgery for plan of home today patient has no complaints discussison of condition and medications granadughter at bedside wishes for walker- RESPITE PROVIDER gave RX along with meds appetite good, ambulates but because of leg surgery- patient needs support for now bowel no complaints urine no complaints no other PMH Objective - Vital Signs/Intake and Output Vital Signs (last 24 hours): Temp Pulse Resp BP Pulse Ox 98.1 F 78 20 145/85 96 12/03/17 07:48 12/03/17 07:48 12/03/17 07:48 12/03/17 07:48 12/03/17 07:48 Intake and Output: 12/03/17 12/03/17 06:59 18:59 Intake Total 1000 Balance 1000 - Medications Medications: Current Medications Enoxaparin Sodium (Lovenox) 30 mg SC DAILY [facility] Last Admin: 12/02/17 10:12 Dose: Not Given Ceftriaxone Sodium 1 gm/ (Sodium Chloride) 100 mls @ 100 mls/hr IVPB DAILY [facility] PRN Reason: Protocol Last Admin: 12/02/17 10:11 Dose: 100 mls/hr Vancomycin/Sodium Chloride (Vancomycin 1 Gm/Ns 200 Ml) 1 gm in 200 mls @ 133.333 mls/hr IVPB Q24H [facility] PRN Reason: Protocol Last Admin: 12/02/17 12:51 Dose: 133.333 mls/hr Potassium Chloride 20 meq/ (Sodium Chloride) 1,010 mls @ 100 mls/hr IV .Q10H6M [facility] Last Admin: 12/03/17 07:47 Dose: Not Given Oxycodone/Acetaminophen (Percocet 5/325 Mg Tab) 1 tab PO Q4H PRN PRN Reason: Pain, moderate (4-7) Stop: 12/05/17 15:08 Pantoprazole Sodium (Protonix Ec Tab) 40 mg PO DAILY [facility] Last Admin: 12/02/17 10:11 Dose: 40 mg Pneumococcal Polyvalent Vaccine (Pneumovax 23 Vaccine) 0.5 ml IM .ONCE ONE Stop: 12/03/17 10:01 - Labs Labs: 12/02/17 08:29 12/02/17 08:29 PT 12.7 SECONDS (9.7-12.2) H 12/02/17 08:29 INR 1.2 12/02/17 08:29 APTT 38 SECONDS (21-34) H 12/02/17 08:29 - Constitutional Appears: Non-toxic, No Acute Distress - Head Exam Head Exam: ATRAUMATIC, NORMOCEPHALIC - Eye Exam Eye Exam: Normal appearance - ENT Exam ENT Exam: Mucous Membranes Moist - Neck Exam Neck Exam: Full ROM - Respiratory Exam Respiratory Exam: Clear to Ausculation Bilateral, NORMAL BREATHING PATTERN - Cardiovascular Exam Cardiovascular Exam: REGULAR RHYTHM - GI/Abdominal Exam GI & Abdominal Exam: Soft, Normal Bowel Sounds. absent: Tenderness - Extremities Exam Extremities Exam: Full ROM, Normal Inspection. absent: Pedal Edema - Neurological Exam Neurological Exam: Alert, Awake, Normal Gait, Oriented x3 - Psychiatric Exam Psychiatric exam: Normal Affect, Normal Mood - Skin Skin Exam: Intact, Normal Color Assessment and Plan - Assessment and Plan (Free Text) Assessment: Patient with wound infection, cellulitis left leg -post I and D, on antibiotic cuture showed MRSA- patient is stable , wants to go home for a family event patient to follow up in the clinic next week Antibiotic aware and walker for support
[2017-12-03] MEDS ORDERED: Pneumococcal 23-Valent Vaccine IM ONE (10:00)
[2017-12-03] MEDS ORDERED: Tmp-Smz 800 mg-160 mg DS Tab PO SCH (10:45)
[2017-12-03] MEDS: Pantoprazole 40 mg EC Tab PO SCH (10:51)
[2017-12-03] MEDS: Enoxaparin 30 mg Syringe SC SCH (10:54)
[2017-12-03] MEDS: Vancomycin 1 gm/NS 200 ml 1 GM/200 ML BAG IVPB SCH (12:12)
--- NOTE | 2017-12-03 13:14 | CP.PCM.PN ---
Subjective - Date & Time of Evaluation Date of Evaluation: 12/03/17 Time of Evaluation: 13:14 - Subjective Subjective: AFEBRILE POD # 1 OFFERS NO NEW COMPLAINTS. ANXIOUS TO GO HOME.. wOUND CULTURE +VE MRSA S- TMP/SMX. PLAN ; START BY MOUTH bACTRIM ONE DOUBLE STRENGTH TWICE A DAY FOR 14 DAYS. MONITOR RENAL FUNCTION CLOSELY. Objective - Vital Signs/Intake and Output Vital Signs (last 24 hours): Temp Pulse Resp BP Pulse Ox 98.1 F 78 20 145/85 96 12/03/17 07:48 12/03/17 07:48 12/03/17 07:48 12/03/17 07:48 12/03/17 07:48 Intake and Output: 12/03/17 12/03/17 06:59 18:59 Intake Total 1000 Balance 1000 - Medications Medications: Current Medications Enoxaparin Sodium (Lovenox) 30 mg SC DAILY [facility] Last Admin: 12/03/17 10:54 Dose: Not Given Ceftriaxone Sodium 1 gm/ (Sodium Chloride) 100 mls @ 100 mls/hr IVPB DAILY [facility] PRN Reason: Protocol Last Admin: 12/03/17 10:49 Dose: 100 mls/hr Vancomycin/Sodium Chloride (Vancomycin 1 Gm/Ns 200 Ml) 1 gm in 200 mls @ 133.333 mls/hr IVPB Q24H [facility] PRN Reason: Protocol Last Admin: 12/03/17 12:12 Dose: 133.333 mls/hr Potassium Chloride 20 meq/ (Sodium Chloride) 1,010 mls @ 100 mls/hr IV .Q10H6M [facility] Last Admin: 12/03/17 07:47 Dose: Not Given Oxycodone/Acetaminophen (Percocet 5/325 Mg Tab) 1 tab PO Q4H PRN PRN Reason: Pain, moderate (4-7) Stop: 12/05/17 15:08 Pantoprazole Sodium (Protonix Ec Tab) 40 mg PO DAILY [facility] Last Admin: 12/03/17 10:51 Dose: 40 mg Trimethoprim/Sulfamethoxazole (Bactrim Ds Tab) 1 tab PO BID [facility] PRN Reason: Protocol Last Admin: 12/03/17 10:51 Dose: 1 tab - Labs Labs: 12/02/17 08:29 12/02/17 08:29 PT 12.7 SECONDS (9.7-12.2) H 12/02/17 08:29 INR 1.2 12/02/17 08:29 APTT 38 SECONDS (21-34) H 12/02/17 08:29 - Constitutional Appears: No Acute Distress, Cachectic - Head Exam Head Exam: NORMAL INSPECTION - Eye Exam Eye Exam: EOMI, PERRL - ENT Exam ENT Exam: Normal Oropharynx - Neck Exam Neck Exam: Normal Inspection - Respiratory Exam Respiratory Exam: Clear to Ausculation Bilateral - Cardiovascular Exam Cardiovascular Exam: REGULAR RHYTHM, +S1, +S2 - GI/Abdominal Exam GI & Abdominal Exam: Soft, Normal Bowel Sounds - Extremities Exam Extremities Exam: Pedal Edema. absent: Calf Tenderness (LT LE +VE DRESSING.) - Neurological Exam Neurological Exam: Alert, Awake, CN II-XII Intact, Normal Gait, Oriented x3 - Psychiatric Exam Psychiatric exam: Normal Mood - Skin Skin Exam: Normal Color Assessment and Plan (1) Nonhealing ulcer of left lower leg Status: Acute (2) Cellulitis of lower extremity Status: Acute
--- NOTE | 2017-12-03 14:38 | CP.PCM.PN ---
Subjective - Date & Time of Evaluation Date of Evaluation: 12/03/17 Time of Evaluation: 14:36 Objective - Vital Signs/Intake and Output Vital Signs (last 24 hours): Temp Pulse Resp BP Pulse Ox 98.1 F 78 20 145/85 96 12/03/17 07:48 12/03/17 07:48 12/03/17 07:48 12/03/17 07:48 12/03/17 07:48 Intake and Output: 12/03/17 12/03/17 06:59 18:59 Intake Total 1000 1000 Balance 1000 1000 - Medications Medications: Current Medications Enoxaparin Sodium (Lovenox) 30 mg SC DAILY [facility] Last Admin: 12/03/17 10:54 Dose: Not Given Ceftriaxone Sodium 1 gm/ (Sodium Chloride) 100 mls @ 100 mls/hr IVPB DAILY [facility] PRN Reason: Protocol Last Admin: 12/03/17 10:49 Dose: 100 mls/hr Vancomycin/Sodium Chloride (Vancomycin 1 Gm/Ns 200 Ml) 1 gm in 200 mls @ 133.333 mls/hr IVPB Q24H [facility] PRN Reason: Protocol Last Admin: 12/03/17 12:12 Dose: 133.333 mls/hr Potassium Chloride 20 meq/ (Sodium Chloride) 1,010 mls @ 100 mls/hr IV .Q10H6M [facility] Last Admin: 12/03/17 07:47 Dose: Not Given Oxycodone/Acetaminophen (Percocet 5/325 Mg Tab) 1 tab PO Q4H PRN PRN Reason: Pain, moderate (4-7) Stop: 12/05/17 15:08 Pantoprazole Sodium (Protonix Ec Tab) 40 mg PO DAILY [facility] Last Admin: 12/03/17 10:51 Dose: 40 mg Trimethoprim/Sulfamethoxazole (Bactrim Ds Tab) 1 tab PO BID [facility] PRN Reason: Protocol Last Admin: 12/03/17 10:51 Dose: 1 tab - Labs Labs: 12/02/17 08:29 12/02/17 08:29 PT 12.7 SECONDS (9.7-12.2) H 12/02/17 08:29 INR 1.2 12/02/17 08:29 APTT 38 SECONDS (21-34) H 12/02/17 08:29
--- NOTE | 2017-12-03 14:44 | CP.PCM.DIS ---
Provider - Provider Date of Admission: 12/01/17 08:36 Attending physician: Liv Vásquez MD Time Spent in preparation of Discharge (in minutes): 30 Hospital Course - Lab Results Lab Results: Micro Results 12/02/17 15:37 Leg - Left Gram Stain - Final 12/02/17 15:37 Leg - Left Wound Culture - Preliminary Gram Positive Cocci 12/01/17 10:15 Blood Blood Culture - Preliminary NO GROWTH AFTER 48 HOURS 12/01/17 10:15 Blood Blood Culture - Preliminary NO GROWTH AFTER 48 HOURS 12/01/17 09:04 Leg - Left Gram Stain - Final 12/01/17 09:04 Leg - Left Wound Culture - Final Methicillin Resistant S Aureus Most Recent Lab Values WBC 5.7 K/uL (4.8-10.8) 12/02/17 08:29 RBC 4.05 Mil/uL (3.80-5.20) 12/02/17 08:29 Hgb 12.6 g/dL (11.0-16.0) 12/02/17 08:29 Hct 38.1 % (34.0-47.0) 12/02/17 08:29 MCV 94.2 fL (81.0-99.0) 12/02/17 08:29 MCH 31.3 pg (27.0-31.0) H 12/02/17 08:29 MCHC 33.2 g/dL (33.0-37.0) 12/02/17 08:29 RDW 14.3 % (11.5-14.5) 12/02/17 08:29 Plt Count 255 K/uL (130-400) 12/02/17 08:29 MPV 7.4 fL (7.2-11.7) 12/02/17 08:29 Neut % (Auto) 61.7 % (50.0-75.0) 12/01/17 07:59 Lymph % (Auto) 26.1 % (20.0-40.0) 12/01/17 07:59 Crockett % (Auto) 8.8 % (0.0-10.0) 12/01/17 07:59 Eos % (Auto) 2.7 % (0.0-4.0) 12/01/17 07:59 Baso % (Auto) 0.7 % (0.0-2.0) 12/01/17 07:59 Neut # (Auto) 4.3 K/uL (1.8-7.0) 12/01/17 07:59 Lymph # (Auto) 1.8 K/uL (1.0-4.3) 12/01/17 07:59 [place]ckett # (Auto) 0.6 K/uL (0.0-0.8) 12/01/17 07:59 Eos # (Auto) 0.2 K/uL (0.0-0.7) 12/01/17 07:59 Baso # (Auto) 0.1 K/uL (0.0-0.2) 12/01/17 07:59 ESR 20 mm/hr (0-20) 12/01/17 13:46 PT 12.7 SECONDS (9.7-12.2) H 12/02/17 08:29 INR 1.2 12/02/17 08:29 APTT 38 SECONDS (21-34) H 12/02/17 08:29 Sodium 146 mmol/L (132-148) 12/02/17 08:29 Potassium 3.3 mmol/L (3.6-5.2) L 12/02/17 08:29 Chloride 110 mmol/L (98-107) H 12/02/17 08:29 Carbon Dioxide 26 mmol/L (22-30) 12/02/17 08:29 Anion Gap 14 (10-20) 12/02/17 08:29 BUN 10 mg/dL (7-17) 12/02/17 08:29 Creatinine 0.5 mg/dL (0.7-1.2) L 12/02/17 08:29 Est GFR ( Amer) > 60 12/02/17 08:29 Est GFR (Non-Af Amer) > 60 12/02/17 08:29 Random Glucose 82 mg/dL (65-105) 12/02/17 08:29 Hemoglobin A1c 5.6 % (4.2-6.5) 12/01/17 13:46 Calcium 8.8 mg/dl (8.6-10.4) 12/02/17 08:29 Total Bilirubin 0.6 mg/dL (0.2-1.3) 12/02/17 08:29 AST 25 U/L (14-36) 12/02/17 08:29 ALT 21 U/L (9-52) 12/02/17 08:29 Alkaline Phosphatase 109 U/L (38-126) 12/02/17 08:29 C-Reactive Protein < 5.00 mg/L (0.0-9.9) 12/01/17 13:50 Total Protein 6.9 g/dL (6.3-8.3) 12/02/17 08:29 Albumin 3.5 g/dL (3.5-5.0) 12/02/17 08:29 Globulin 3.4 gm/dL (2.2-3.9) 12/02/17 08:29 Albumin/Globulin Ratio 1.0 (1.0-2.1) 12/02/17 08:29 Triglycerides 85 mg/dL (0-149) 12/01/17 13:50 Cholesterol 130 mg/dL (0-199) 12/01/17 13:50 LDL Cholesterol Direct 69 mg/dL (0-129) 12/01/17 13:50 HDL Cholesterol 29 mg/dL (30-70) L 12/01/17 13:50 - Hospital Course Hospital Course: admitted for one month old wound left leg after itchy rash after gardening- placed on antibiotic after culture, ID and surgery consulted debridement had improvement stabe home PT walker appointment next week Discharge Exam - Head Exam Head Exam: ATRAUMATIC, NORMOCEPHALIC - Eye Exam Eye Exam: Normal appearance - ENT Exam ENT Exam: Mucous Membranes Moist - Neck Exam Neck exam: Full Rom - Respiratory Exam Respiratory Exam: Clear to PA & Lateral, NORMAL BREATHING PATTERN - Cardiovascular Exam Cardiovascular Exam: REGULAR RHYTHM - GI/Abdominal Exam GI & Abdominal Exam: Normal Bowel Sounds, Soft. absent: Tenderness - Extremities Exam Extremities exam: full ROM (no edema- left leg bandaged no swelling no redness- she can move both legs ) - Back Exam Back exam: FULL ROM - Neurological Exam Neurological exam: Alert, Normal Gait (except for the compensation due to left leg debridement ), Oriented x3 - Psychiatric Exam Psychiatric exam: Normal Affect, Normal Mood - Skin Skin Exam: Intact (oter then the left leg lesion), Normal Color Discharge Plan - Discharge Medications Prescriptions: Sulfamethoxazole/Trimethoprim [Bactrim DS Tab] 1 tab PO BID #14 tab - Follow Up Plan Condition: FAIR Disposition: HOME/ ROUTINE
[2017-12-03 16:11] VITALS: PULSE 94; TEMP 98; O2SAT 98
--- NOTE | 2017-12-07 10:21 | VASCLAB ---
STUDY DESCRIPTION: HISTORY: Poor pedal pulses, ulcer PRIORS: None. TECHNIQUE: Pulse volume recording waveforms and segmental pressures of bilateral lower extremities at multiple levels were obtained. Ankle Brachial Indices (ABIs) were calculated. Report prepared by VALENCIA Padron RIGHT LOWER EXTREMITY: * Brachial artery: Pressure - 163 mmHg. * Low thigh: Pressure - 191 mmHg: Ratio - 1.17 PVR waveform: Pulsatile * Calf: Pressure - 180 mmHg: Ratio - 1.10 PVR waveform: Pulsatile * Posterior tibial Artery: Pressure - 178 mmHg: Ratio - 1.09 PVR waveform: Pulsatile * Dorsalis pedis Artery: Pressure - 169 mmHg: Ratio - 1.04 PVR waveform: Pulsatile * Great toe: Pressure - 144 mmHg: Ratio - 0.88 PVR waveform: Pulsatile Ankle brachial index (APARNA): 1.09 LEFT LOWER EXTREMITY: * Brachial artery: Pressure - 163 mmHg. * Low thigh: Pressure - 182 mmHg: Ratio - 1.12 PVR waveform: Pulsatile * Calf: Pressure - 202 mmHg: Ratio - 1.24 PVR waveform: Pulsatile * Posterior tibial Artery: Pressure - 171 mmHg: Ratio - 1.05 PVR waveform: Pulsatile * Dorsalis pedis Artery: Pressure - 182 mmHg: Ratio - 1.12 PVR waveform: Pulsatile * Great toe: Pressure - 152 mmHg: Ratio - 0.93 PVR waveform: Pulsatile Ankle brachial index (APARNA): 1.12 OTHER FINDINGS: IMPRESSION: Right: There was no evidence of hemodynamically significant arterial insufficiency in the right lower extremity. Left: There was no evidence of hemodynamically significant arterial insufficiency in the left lower extremity.
--- NOTE | 2017-12-10 14:18 | PQF ---
CDI RESPONSE TEXT: As clearly stated in the operative report, I debrided skin and subcutaneous tissue. If there is a question about instruments. I used a scalpel with a green plastic handle and a metallic blade.( this cannot be done without a scalpel.) Is there another question? CDI QUERY TEXT: Debridement Type Debridement is documented in the Medical Record. Please specify the type and extent of debridement to include the method and instruments used. Depth of tissue removed: Such as: -- Skin -- Subcutaneous tissue -- Fascia -- Muscle -- Bone -- Other, please specify The patient's Clinical Indicators include: Pathology - Left leg, clinically ulcer,Tissue Debridement: - Fragments of skin and underlying tissue with Gangrene,acute and chronic inflammation, abcess format ion and reactive changes. Query created by: Meryl Huber on 12/07/2017 9:39 AM Electronically signed by: Edward Gamboa MD 12/10/2017 2:15 PM
== END 2017-12-03 17:26 | disposition home or self-care (01) | DRG 300 ==
LOC: C.ER 06:49 → C.9E 08:36 → C.3T 09:35
PROVIDERS: ADMIT Internal Medicine; ATTEND Internal Medicine
PROC: 0HBLXZZ Excision of Left Lower Leg Skin, External Approach (ICD-10-PCS; principal; 2017-12-02 13:00)
DX: I96 Gangrene, not elsewhere classified (principal); L03.116 Cellulitis of left lower limb; L97.229 Non-pressure chronic ulcer of left calf with unspecified severity